=== PATIENT | female | born 1985 | race Caucasian/White ===

== ENCOUNTER 2019-01-08 17:46 | Emergency (ER) | payer OTHER ==
[~2019-01-08] VITALS: Ht 167.6 cm; Wt 47.7 kg
[2019-01-08 17:50] VITALS: BP 124/2; PULSE 84; RESP 18; Ht 167.6 cm; Wt 47.7 kg
[2019-01-08] MEDS ORDERED: HYDROCODONE/APAP (5/325) TAB PO ONE (22:00)
[2019-01-08] MEDS ORDERED: IBUPROFEN 600 MG TAB PO ONE (22:00)
--- NOTE | 2019-01-08 22:21 | ERD ---
ER Documentation Chief Complaint Chief Complaint right ankle pain & swelling s/p twisted last night HPI This is a 33-year-old female with a nonsignificant past medical history presents ED with right ankle pain status post inversion injury that occurred last night. Admits to painful range of motion, decreased range of motion and swelling. Denies tingling, numbness, lack sensation. Unable to ambulate. ROS All systems reviewed and are negative except as per history of present illness. PMhx/Soc Medical and Surgical Hx: pt denies Medical Hx, pt denies Surgical Hx Hx Alcohol Use: No Hx Substance Use: No Hx Tobacco Use: No Smoking Status: Never smoker FmHx Family History: No diabetes Physical Exam Vitals Vital Signs Date Temp Pulse Resp B/P (MAP) Pulse Ox O2 O2 Flow FiO2 Time Delivery Rate 01/08/19 98.9 84 18 124/2 (42) 100 17:50 Physical Exam Const: No acute distress Head: Atraumatic Eyes: Normal Conjunctiva ENT: Normal External Ears, Nose and Mouth. Neck: Full range of motion. No meningismus. Resp: Clear to auscultation bilaterally Cardio: Regular rate and rhythm, no murmurs Ext: No cyanosis Lower Extremity -right Skin: Moderate swelling to lateral malleolus and forefoot Compartments: Soft Motor: Full active range of motion hip/knee/ankle/foot Sensation: Intact to light touch FDWS/MF/LF/P surfaces. Bones: Moderate tenderness palpation along malleoli and lateral forefoot, nontender pelvis/knee/proximal tibia/ Joints: No effusion or laxity Pulses/Perfusion: 2+ DP, Capillary refill < 2 seconds Neur: Awake and alert Psych: Normal Mood and Affect Results 24 hrs Laboratory Tests Test 01/08/19 21:57 POC Beta HCG, Qualitative NEGATIVE Current Medications Medications Dose Sig/Nancy Start Time Status Last (Trade) Ordered Route PRN Stop Time Admin Dose Reason Admin 1 tab ONCE ONCE 01/08/19 DC 01/08/19 Acetaminophen PO 22:00 22:03 / 01/08/19 22:01 Hydrocodone Bitart ([place] (5/325)) Ibuprofen 600 mg ONCE ONCE 01/08/19 DC 01/08/19 (Motrin) PO 22:00 22:02 01/08/19 22:01 Procedures/MDM EKG, MONITORS, & DIAGNOSTIC IMAGING: [address], [place] [address] Radiology Main Line: [phone] DIAGNOSTIC IMAGING REPORT Patient: GURINDER CASTRO : 1985 Age: 33 Sex: F MR #: [id number] DOS: 01/08/19 2143 Ordering MD: CRISPIN REGALADO PA-C Location: [facility] Room/Bed: PROCEDURE: XR Right Ankle. CLINICAL INDICATION: Pain TECHNIQUE: AP, oblique and lateral views of the right ankle were performed. COMPARISON: None. FINDINGS: There is normal mineralization and alignment. No acute fracture or osseous lesion is identified. The joints are normal. There is lateral malleolar soft tissue swelling. IMPRESSION: Right lateral malleolar soft tissue swelling. No fracture or dislocation. .Gary Constantino MD, MD Date Time Electronically viewed and signed by .Gary Constantino MD, MD on 01/08/2019 22: 55 .A/ CC: CRISPIN REGALADO PA-C [id number] ER COURSE: The patient was given [place] and ibuprofen The medication was well tolerated and the patient reports improvement in symptoms. The patient was stable throughout ED course. I kept the patient and/or family informed of laboratory and diagnostic imaging results throughout the emergency room course. The patient was promptly evaluated and a treatment plan was devised based on H&P and other data. This plan was discussed with the patient who agreed and had no further questions or concerns prior to discharge. MEDICAL DECISION MAKING: This is a 33-year-old female who presents ED with right ankle injury that occurred last night. X-ray shows right lateral malleolar soft tissue swelling but there is no fracture or dislocation. This is likely a sprain. Patient was given crutches and ankle stirrup to aid with ambulation. History and physical examination other data not consistent with emergent processes including but not limited to fracture, dislocation, tendon rupture, ischemia, neurovascular injury, compartment syndrome, septic joint, avascular necrosis, osteomyelitis, necrotizing fasciitis, septic joint, septic arthritis, or other emergent conditions. Patient's vitals are stable and can be managed outpatient with close follow-up. Advised patient to follow-up with primary care in the next 48 hours. Return to ED with any worsening symptoms. DISPOSITION PLAN: We discussed follow up with the patient's primary care doctor within 24 to 48 hours. Patient counseled regarding my diagnostic impression and care plan. Radha or to discharge all questions answered. Pt agrees with treatment plan and understands strict return precautions. Precautionary instructions provided including instructions to return to the ER if not improving or for any worsening or changing symptoms or concerns. SPECIALIST FOLLOW UP RECOMMENDED: None Patient has been advised to follow up with primary care in 1-2 days. Disclaimer: Inadvertent spelling and grammatical errors are likely due to EHR/dictation software use and do not reflect on the overall quality of patient care. Also, please note that the electronic time recorded on this note does not necessarily reflect the actual time of the patient encounter. Departure Diagnosis: Primary Impression: Ankle injury Encounter type: initial encounter Laterality: right Qualified Codes: S99.911A - Unspecified injury of right ankle, initial encounter Condition: Stable Patient Instructions: R.I.C.EUlysses, Treating Ankle Sprains, What Are Ankle Sprains? Referrals: [facility] Additional Instructions: Patient advised to return to the ED immediately for new or worsening symptoms. Patient advised to follow up with primary care provider in the next 24-48 hours. Patient verbalized understanding and agrees with treatment plan and course of action. If patient has no primary care they may follow up with one of the community clinics listed on the following page or one of the options listed below [facility] + [facility] [address] [place] [id number] or [facility] [address] [place] [address] or [facility] [address] [place] [address] CRISPIN REGALADO PA-C Jan 08, 2019 22:21
[2019-01-08] MEDS ORDERED: IBUP-1542 PO (23:04)
== END 2019-01-08 23:39 | disposition home or self-care (01) ==
LOC: FTE 17:46
DX: S99.911A Unspecified injury of right ankle, initial encounter (principal); X50.1XXA Overexertion from prolonged static or awkward postures, initial encounter; Y92.9 Unspecified place or not applicable
CPT/HCPCS: 73610; 73630; 81025; Z7502; Z7610